=== PATIENT | female | born 1965 | race Caucasian/White ===

== ENCOUNTER 2017-03-18 16:37 | Observation (INO) | payer OTHER ==
[~2017-03-18] VITALS: Ht 162.6 cm; Wt 58.0 kg
[~2017-03-18 16:37] MED LIST: ACETYLCYST200 MG/1 M NEB; ALBUTEROL2.5 MG/3 M IH; ALDACTONE25 MG PO; B-12500 MCG PO; CALCIUM600 MG PO; DULCOLAX5 MG PO; DUONEB 2.5-0.5MG3 ML NEB; FOLIC ACID1 MG PO; HYDROCODON-ACE1 EAC2 PO; IRON325 MG PO; LASIX40 MG PO; LEVAQUIN500 MG PO; LEVAQUIN750 MG PO; LIPITOR10 MG PO; MULTIVITAMINS1 EAC1 PO; NEURONTIN800 MG PO; NICODERM 14MG PA1 EA TD; NICODERM 21MG PA1 EA TD; OXYCODONE-ACET1 EAC1 PO; PANTOPRAZOLE SO40 MG PO; PLAVIX75 MG PO; PREDNISONE10 MG PO; TYLENOL325 M1 PO; XANAX0.5 MG PO; ZANTAC150 MG PO; ZOFRAN4 MG PO; ZOLOFT50 MG PO
[2017-03-18 17:30] LABS: BASO # 0.1 10_X3_uL (0.0-0.1); EOS # 0.2 10_X3_uL (0.0-0.4); EOS % 3.4 % (0.7-5.8); GRAN # 4.1 10_X3_uL (1.6-6.1); GRAN % 57.7 % (34.0-71.1); HEMATOCRIT 40.4 % (34-45); HEMOGLOBIN 13.5 g/dL (11.2-15.7); LYMPH # 2.1 10_X3_uL (1.2-3.7); LYMPH % 29.6 % (19.3-51.7); MEAN CORPUSCULAR HGB CONC 33.4 g/dL (32.0-36.0); MEAN CORPUSCULAR VOLUME 77.8 fL (79-95); MEAN PLATELET VOLUME 9.1 fl (7.5-11.5); MONO # 0.6 10_X3_uL (0.2-0.9); MONO % 8.3 % (4.7-12.5); PLATELET COUNT 365 x10_3/uL (182-369); RED BLOOD COUNT 5.19 x10_6/uL (3.9-5.2); RED CELL DISTRIBUTION WIDTH 18.7 % (11.7-14.4); WHITE BLOOD COUNT 7.1 x10_3/uL (4.0-10.0)
[2017-03-18 17:37] LABS: ALBUMIN 3.4 gm/dL (3.4-5.0); ALKALINE PHOSPHATASE 76 U/L (50-136); ALT/SGPT 8 U/L (3.5-33.9); AST/SGOT 16 U/L (7.04-26.96); BILIRUBIN,TOTAL 0.19 mg/dL (0.0-1.0); BLOOD UREA NITROGEN 12 mg/dL (7-18); CARBON DIOXIDE 27 mmol/L (21-32); CREATININE 0.7 mg/dL (0.6-1.3); GLUCOSE,RANDOM 99 mg/dL (70-99); POTASSIUM 3.5 mmol/L (3.5-5.1); SODIUM 140 mmol/L (136-145); TOTAL PROTEIN 6.4 gm/dL (6.4-8.2)
[2017-03-18 17:44] LABS: URINE BILIRUBIN 1+ (NEGATIVE); URINE BLOOD NEGATIVE (NEGATIVE); URINE GLUCOSE (UA) NORMAL (NORMAL); URINE KETONE NEGATIVE (NEGATIVE); URINE LEUKOCYTE ESTERASE TRACE (NEGATIVE); URINE NITRATE NEGATIVE (NEGATIVE); URINE PROTEIN 1+ (NEGATIVE)
[2017-03-18 17:55] LABS: URINE BACTERIA TRACE (NONE SEEN); URINE RBC 0-5 /[HPF] (0-2); URINE SQUAMOUS EPITHELIAL CELL 0-10 /[HPF] (NONE SEEN)
[2017-03-18 23:27] LABS: CKMB 2.5 ng/ml (0.0-5.0)
[2017-03-18 23:34] LABS: TROP-I < 0.30 NG/ML (0.00-0.30)
[2017-03-19 04:57] LABS: HEMATOCRIT 35.2 % (34-45); HEMOGLOBIN 11.2 g/dL (11.2-15.7); MEAN CORPUSCULAR HEMOGLOBIN 26.3 pg (27.0-33.0); MEAN CORPUSCULAR HGB CONC 31.8 g/dL (32.0-36.0); MEAN CORPUSCULAR VOLUME 82.6 fL (79-95); MEAN PLATELET VOLUME 9.3 fl (7.5-11.5); RED BLOOD COUNT 4.26 x10_6/uL (3.9-5.2); RED CELL DISTRIBUTION WIDTH 18.4 % (11.7-14.4); WHITE BLOOD COUNT 6.4 x10_3/uL (4.0-10.0)
[2017-03-19 05:16] LABS: ALBUMIN 2.5 gm/dL (3.4-5.0); ALKALINE PHOSPHATASE 64 U/L (50-136); ALT/SGPT 6 U/L (3.5-33.9); AST/SGOT 12 U/L (7.04-26.96); BLOOD UREA NITROGEN 10 mg/dL (7-18); CALCIUM 8.1 mg/dL (8.7-10.7); CARBON DIOXIDE 26 mmol/L (21-32); CREATININE 0.5 mg/dL (0.6-1.3); GLUCOSE,RANDOM 109 mg/dL (70-99); POTASSIUM 3.6 mmol/L (3.5-5.1); SODIUM 142 mmol/L (136-145); TOTAL PROTEIN 5.1 gm/dL (6.4-8.2)
[2017-03-19 05:38] LABS: BILIRUBIN,TOTAL < 0.15 mg/dL (0.0-1.0)
[2017-03-19 17:48] LABS: CKMB 3.3 ng/ml (0.0-5.0)
[2017-03-19 18:14] LABS: TROP-I < 0.30 NG/ML (0.00-0.30)
[2017-03-20 07:09] LABS: HEMATOCRIT 36.3 % (34-45); HEMOGLOBIN 11.1 g/dL (11.2-15.7); MEAN CORPUSCULAR HEMOGLOBIN 25.5 pg (27.0-33.0); MEAN CORPUSCULAR HGB CONC 30.6 g/dL (32.0-36.0); MEAN CORPUSCULAR VOLUME 83.3 fL (79-95); MEAN PLATELET VOLUME 9.3 fl (7.5-11.5); RED BLOOD COUNT 4.36 x10_6/uL (3.9-5.2); RED CELL DISTRIBUTION WIDTH 18.1 % (11.7-14.4); WHITE BLOOD COUNT 6.2 x10_3/uL (4.0-10.0)
[2017-03-20 07:17] LABS: BLOOD UREA NITROGEN 10 mg/dL (7-18); CALCIUM 8.6 mg/dL (8.7-10.7); CARBON DIOXIDE 31 mmol/L (21-32); CREATININE 0.5 mg/dL (0.6-1.3); GLUCOSE,RANDOM 170 mg/dL (70-99); POTASSIUM 4.2 mmol/L (3.5-5.1); SODIUM 141 mmol/L (136-145)
[2017-03-21 07:04] LABS: HEMATOCRIT 34.6 % (34-45); HEMOGLOBIN 10.5 g/dL (11.2-15.7); MEAN CORPUSCULAR HEMOGLOBIN 25.4 pg (27.0-33.0); MEAN CORPUSCULAR HGB CONC 30.3 g/dL (32.0-36.0); MEAN CORPUSCULAR VOLUME 83.6 fL (79-95); MEAN PLATELET VOLUME 9.1 fl (7.5-11.5); RED BLOOD COUNT 4.14 x10_6/uL (3.9-5.2); RED CELL DISTRIBUTION WIDTH 18.8 % (11.7-14.4); WHITE BLOOD COUNT 10.6 x10_3/uL (4.0-10.0)
[2017-03-21 07:18] LABS: ALBUMIN 2.7 gm/dL (3.4-5.0); ALKALINE PHOSPHATASE 60 U/L (50-136); ALT/SGPT 6 U/L (3.5-33.9); AST/SGOT 12 U/L (7.04-26.96); BLOOD UREA NITROGEN 17 mg/dL (7-18); CALCIUM 8.3 mg/dL (8.7-10.7); CARBON DIOXIDE 31 mmol/L (21-32); CREATININE 0.5 mg/dL (0.6-1.3); GLUCOSE,RANDOM 113 mg/dL (70-99); POTASSIUM 3.5 mmol/L (3.5-5.1); SODIUM 144 mmol/L (136-145)
[2017-03-21 07:20] LABS: BILIRUBIN,TOTAL < 0.15 mg/dL (0.0-1.0)
== END 2017-03-21 14:10 ==
LOC: ER 16:37 → MS 18:21
PROVIDERS: General Practice; ADMIT Family Medicine
DX: E86.0 Dehydration (principal); N39.0 Urinary tract infection, site not specified; J44.1 Chronic obstructive pulmonary disease with (acute) exacerbation; I95.89 Other hypotension; R53.1 Weakness; R07.89 Other chest pain; R91.8 Other nonspecific abnormal finding of lung field; I50.9 Heart failure, unspecified; R11.0 Nausea; Z90.12 Acquired absence of left breast and nipple; Z85.3 Personal history of malignant neoplasm of breast; F41.9 Anxiety disorder, unspecified; G89.29 Other chronic pain; Z79.891 Long term (current) use of opiate analgesic; Z79.899 Other long term (current) drug therapy; Z88.0 Allergy status to penicillin; Z88.5 Allergy status to narcotic agent; Z88.8 Allergy status to other drugs, medicaments and biological substances; F17.210 Nicotine dependence, cigarettes, uncomplicated; Z86.73 Personal history of transient ischemic attack (TIA), and cerebral infarction without residual deficits; Z99.81 Dependence on supplemental oxygen
CPT/HCPCS: 36415; 51702; 71010; 71250; 80048; 80053; 81001; 82550; 82553; 83605; 83735; 83880; 84484; 85025; 87040; 87086; 93005; 93041; 94640; 94664; 96361; 96366; 96367; 96374; 96375; 96376; 99070; 99285-25; G0378; J2930; Q0169